=== PATIENT | female | born 1940 ===

== ENCOUNTER 2018-06-11 12:03 | Outpatient (CLI) | payer OTHER ==
[~2018-06-11 12:03] MED LIST: AVAPRO150 MG PO; MULTI-DAY1 TAB PO; PLAVIX75 MG PO; SYNTHROID50 MCG PO
== END 2018-06-11 12:04 | disposition home or self-care (01) ==
LOC: SONOGRAMA 12:03
DX: E04.1 Nontoxic single thyroid nodule (principal)

== ENCOUNTER 2024-06-30 13:52 | Outpatient (CLI) | payer OTHER | END 2024-06-30 14:02 | disposition home or self-care (01) | LOC: MRI 13:52 | PROVIDERS: ATTEND Internal Medicine | DX: M54.17 Radiculopathy, lumbosacral region (principal); M54.2 Cervicalgia | CPT/HCPCS: 72141; 72148 ==

== ENCOUNTER 2025-03-30 15:21 | Outpatient (CLI) | payer OTHER | END 2025-03-30 15:25 | disposition home or self-care (01) | LOC: RAD 15:21 | DX: M54.50 Low back pain, unspecified (principal); S32.020A Wedge compression fracture of second lumbar vertebra, initial encounter for closed fracture ==